=== PATIENT | female | born 1980 ===

== ENCOUNTER 2025-05-25 10:00 | Inpatient (IN) | payer OTHER ==
[~2025-05-25] VITALS: Ht 160 cm; Wt 61.2 kg
[2025-05-25] MEDS ORDERED: PANTOPRAZOLE SO40 MG PO (11:32)
[2025-05-25] MEDS ORDERED: CARAFATE1 GM PO (11:32)
[2025-05-25 11:33] VITALS: BP 102/69
[2025-06-01] MEDS ORDERED: CEFAZOLIN SODIUM 1,000 MG VIAL ONE ×2 (08:34→17:19)
[2025-06-01] MEDS ORDERED: METRONIDAZOLE/SODIUM CHLORIDE 500 MG/100 ML PIGGYBACK IV ONE (08:34)
[2025-06-01] MEDS ORDERED: DEXAMETHASONE SODIUM PHOSPHATE 4 MG/ML VIAL ONE ×2 (10:06→11:59)
[2025-06-01] MEDS ORDERED: POVIDONE-IODINE 118 ML BOTT TOP ONE (10:18)
[2025-06-01] MEDS ORDERED: SUGAMMADEX SODIUM 200 MG/2 ML VIAL IV ONE (12:00)
[2025-06-01] MEDS ORDERED: LIDOCAINE HCL 1% 10ML VIAL ONE (12:00)
[2025-06-01] MEDS ORDERED: VISTASEAL DUAL APPICATOR 1 EACH APPL TOP ONE (12:00)
[2025-06-01] MEDS ORDERED: THROMBIN,HU/FIBRINOGEN/CALCIUM 10 ML SYRINGE TOP ONE (12:00)
[2025-06-01] MEDS ORDERED: TRIAMCINOLONE ACETONIDE 40 MG/ML VIAL ONE (12:04)
[2025-06-01] MEDS ORDERED: MORPHINE SULFATE 4 MG/ML CARTRIDGE IV PRN (12:30)
[2025-06-01] MEDS ORDERED: KETOROLAC TROMETHAMINE 30 MG VIAL IV ONE (12:30)
[2025-06-01] MEDS ORDERED: RINGERS SOLUTION,LACTATED 1,000 ML IV SCH (12:30)
[2025-06-01] MEDS ORDERED: OxyCODONE HCL 5 MG TABLET (ROXICODONE) PO PRN (12:30)
[2025-06-01] MEDS ORDERED: SIMETHICONE 125 MG CAPSULE PO SCH (13:00)
[2025-06-01] MEDS ORDERED: KETOROLAC TROMETHAMINE 30 MG VIAL ONE (15:10)
[2025-06-01 15:23] LABS: BASO % 0.1 % (0.1-1.2); EOS # 0.01 (0.04-0.54); EOS % 0.1 % (0.7-7.0); LYMPH # 0.45 (1.18-3.74); LYMPH % 6.2 % (19.3-53.1); MEAN PLATELET VOLUME 11.70 fl (9.4-12.4); MONO # 0.07 (0.24-0.82); MONO % 1.0 % (4.7-12.5); NEUT # 6.64 (1.56-6.13); NEUT % 92.2 % (34.0-71.1); RED CELL DISTRIBUTION WIDTH 16.7 % (11.6-14.4)
[2025-06-01 16:42] LABS: BUN CREA RATIO 8.0 (7.0-25.0); CREATININE SERUM 0.49 mg/dL (0.55-1.02); GFR 137.19; GLUCOSE FASTING 116.0 mg/dL (65-100); OSMOLALITY SERUM 283.0 MOSM/KG (275-295)
[2025-06-01] MEDS ORDERED: GABAPENTIN 300 MG CAPSULE PO SCH (17:00)
[2025-06-01] MEDS ORDERED: CEFAZOLIN SODIUM 1,000 MG VIAL IV SCH (17:00)
[2025-06-01] MEDS ORDERED: METOCLOPRAMIDE HCL 5 MG/ML VIAL IV SCH (17:00)
[2025-06-01] MEDS ORDERED: METOCLOPRAMIDE HCL 5 MG/ML VIAL ONE (17:18)
[2025-06-01] MEDS ORDERED: GABAPENTIN 300 MG CAPSULE PO ONE (17:19)
[2025-06-01] MEDS ORDERED: ACETAMINOPHEN 500 MG GEL..CAP PO ONE (17:19)
[2025-06-01] MEDS ORDERED: SIMETHICONE 125 MG CAPSULE PO ONE (17:25)
[2025-06-01] MEDS ORDERED: ACETAMINOPHEN 500 MG GEL..CAP PO SCH (18:00)
[2025-06-01 19:05] VITALS: BP 102/66; O2SAT 100
[2025-06-01] MEDS ORDERED: CELECOXIB 200 MG CAPSULE PO SCH (21:00)
[2025-06-01] MEDS ORDERED: FAMOTIDINE/PF 20 MG/2 ML VIAL IV PUSH SCH (21:00)
[2025-06-01] MEDS ORDERED: DOCUSATE SODIUM 100MG CAP PO SCH (21:00)
[2025-06-02] VITALS: BP 95/60; O2SAT 99
[2025-06-02 06:12] LABS: BASO % 0.1 % (0.1-1.2); EOS # 0.01 (0.04-0.54); EOS % 0.1 % (0.7-7.0); LYMPH # 0.71 (1.18-3.74); LYMPH % 6.9 % (19.3-53.1); MEAN PLATELET VOLUME 12.40 fl (9.4-12.4); MONO # 0.50 (0.24-0.82); MONO % 4.9 % (4.7-12.5); NEUT # 8.97 (1.56-6.13); NEUT % 87.8 % (34.0-71.1); RED CELL DISTRIBUTION WIDTH 16.6 % (11.6-14.4)
[2025-06-02 06:47] LABS: BUN CREA RATIO 10.0 (7.0-25.0); CREATININE SERUM 0.63 mg/dL (0.55-1.02); GFR 102.66; GLUCOSE FASTING 114.0 mg/dL (65-100); OSMOLALITY SERUM 282.0 MOSM/KG (275-295)
[2025-06-02 08:00] VITALS: BP 98/62; O2SAT 100
[2025-06-02] MEDS ORDERED: ENOXAPARIN SODIUM 40 MG/0.4 ML SYRINGE SUBCUTANEO SCH (09:00)
== END 2025-06-02 14:34 | disposition home or self-care (01) | DRG 743 ==
LOC: O/R 06-01 07:00 → SURH 06-01 09:00 → SURG 06-01 17:47
PROVIDERS: Obstetrics & Gynecology; ADMIT Obstetrics & Gynecology Gynecologic Oncology; ATTEND Obstetrics & Gynecology Gynecologic Oncology
PROC: 0UT74ZZ Resection of Bilateral Fallopian Tubes, Percutaneous Endoscopic Approach (ICD-10-PCS; 2025-06-01)
PROC: 0USG4ZZ Reposition Vagina, Percutaneous Endoscopic Approach (ICD-10-PCS; 2025-06-01)
PROC: 8E0W4CZ Robotic Assisted Procedure of Trunk Region, Percutaneous Endoscopic Approach (ICD-10-PCS; 2025-06-01)
PROC: 0UT94ZZ Resection of Uterus, Percutaneous Endoscopic Approach (ICD-10-PCS; principal; 2025-06-01 09:00)
DX: D25.1 Intramural leiomyoma of uterus (principal); D25.2 Subserosal leiomyoma of uterus; D25.0 Submucous leiomyoma of uterus
CPT/HCPCS: 58573; 57425; S2900